=== PATIENT | female | born 2000 | race Two or more races ===

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

== ENCOUNTER 2018-12-01 21:26 | Observation (INO) | payer OTHER ==
[2018-12-01] MEDS ORDERED: Famotidine TAB* 20 MG PO ONE (22:19)
[2018-12-01] MEDS ORDERED: NS 0.9% 1000 ML** 1,000 ML IV ONE (22:19)
[2018-12-01] MEDS ORDERED: Ondansetron INJ* 2 MG/ML VIAL IV ONE (22:19)
[2018-12-01] MEDS ORDERED: Al Hydrox/Mg Hydrox/Simet LIQ* 30 ML UDC PO ONE (22:20)
[2018-12-01] MEDS ORDERED: Lidocaine 2% VISCOUS* 15 ML UDC PO ONE (23:29)
[2018-12-01 23:59] LABS: ABS Lymphocytes 2.3 10^3/ul (1.0-4.8); ABS Monocytes 0.8 10^3/ul (0-0.8); ABS Neutrophils 7.8 10^3/ul (1.5-7.7); Eosinophil % 0.3 %; Hematocrit 35 % (35-47); Hemoglobin 11.6 g/dL (12.0-16.0); Lymphocyte % 20.8 %; Mean Corpuscular HGB Conc 34 g/dL (31-36); Mean Corpuscular Hemoglobin 32 pg (27-31); Mean Corpuscular Volume 95 fL (80-97); Mean Platelet Volume 6.9 fL (7.4-10.4); Nucleated Red Blood Cells % 0.1; Platelet Count 291 10^3/uL (150-450); Red Blood Count 3.66 10^6 /uL (3.70-4.87); Red Cell Distribution Width 12 % (10.5-15); White Blood Count 10.9 10^3/uL (3.5-10.8)
[2018-12-02 00:01] LABS: Urine Appearance Clear; Urine Bilirubin Negative (Negative); Urine Blood Negative (Negative); Urine Color Yellow; Urine Glucose Negative (Negative); Urine Ketones Negative (Negative); Urine Nitrite Negative (Negative); Urine Protein Negative (Negative); Urine Specific Gravity 1.018 (1.010-1.030); Urine Urobilinogen Negative (Negative)
[2018-12-02] MEDS ORDERED: Morphine 10 MG/ML VIAL (1 ml) IV ONE ×2 (00:02→01:32)
[2018-12-02] MEDS ORDERED: Ondansetron INJ* 2 MG/ML VIAL IV ONE (00:02)
[2018-12-02 00:31] LABS: ALT 8 U/L (7-52); AST 13 U/L (13-39); Albumin 4.2 g/dL (3.2-5.2); Albumin/Globulin Ratio 1.4 (1-3); Alkaline Phosphatase 33 U/L (34-104); Anion Gap 5 mmol/L (2-11); BUN/Creatinine Ratio 12.7 (8-20); Blood Urea Nitrogen 10 mg/dL (6-24); C Reactive Protein 5.59 mg/L (<8.01); CO2 Carbon Dioxide 27 mmol/L (22-32); Calcium 9.5 mg/dL (8.6-10.3); Chloride 105 mmol/L (101-111); EGFR African American 112.3 (>60); EGFR Non-African American 92.8 (>60); Globulin 2.9 g/dL (2-4); Glucose 95 mg/dL (70-100); Potassium 3.7 mmol/L (3.5-5.0); Sodium 137 mmol/L (135-145); Total Protein 7.1 g/dL (6.4-8.9)
[2018-12-02 00:50] LABS: HCG Pregnancy < 0.60 mIU/mL
[2018-12-02] MEDS ORDERED: Iohexol 300* (CONTRAST) 10 ML SDV IV ONE (02:17)
--- NOTE | 2018-12-02 02:26 | ED ---
Abdominal Pain/Female - HPI Summary HPI Summary: Patient complains of bilateral lower abdominal pain starting 8 hours ago, accompanied by nausea, vomiting 1, diarrhea 1. Pain worse with movement, constant, worse 10/10. Patient states pain started after she had caffeine and red brought together. Patient states she has had caffeine pills and [place] before without issue, but has never had them together. States history of IBS- like symptoms, but states she has never had pain like this before LMP /. Positive OCP. Denies fever, cough, sore throat, CP, SOB, change in urine, vaginal discharge, vaginal bleeding, vaginal pain. Abdominal surgical history is none. - History of Current Complaint Chief Complaint: EDAbdPain Stated Complaint: REALLY BAD STOMACH PAIN FOR 7 HRS PER PT Time Seen by Provider: 12/01/18 23:19 Hx Obtained From: Patient Onset/Duration: Sudden Onset, Lasting Hours Timing: Constant Severity Initially: Severe Severity Currently: Severe Pain Intensity: 8 Pain Scale Used: 0-10 Numeric Location: Diffuse Radiates: No Character: Sharp Aggravating Factor(s): Movement Alleviating Factor(s): Position Associated Signs and Symptoms: Positive: Nausea, Vomiting, Diarrhea Allergies/Adverse Reactions: Allergies Allergy/AdvReac Type Severity Reaction Status Date / Time No Known Allergies Allergy Verified 12/01/18 21:37 PMH/Surg Hx/FS Hx/Imm Hx Endocrine/Hematology History: Denies: Hx Anticoagulant Therapy Cardiovascular History: Denies: Hx Pacemaker/ICD History: Denies: Hx Dialysis Sensory History: Denies: Hx Eye Prosthesis Opthamlomology History: Denies: Hx Legally Blind EENT History: Denies: Hx Deafness Neurological History: Denies: Hx Dementia Psychiatric History: Denies: Hx Autism Infectious Disease History: No Infectious Disease History: Denies: Traveled Outside the [place] in Last 30 Days - Social History Occupation: Student Alcohol Use: Weekly Substance Use Type: Reports: Marijuana Smoking Status (MU): Former Smoker Review of Systems Constitutional: Negative Eyes: Negative ENT: Negative Cardiovascular: Negative Respiratory: Negative Positive: Abdominal Pain, Vomiting, Diarrhea, Nausea Genitourinary: Negative Musculoskeletal: Negative Skin: Negative Neurological: Negative Psychological: Normal All Other Systems Reviewed And Are Negative: Yes Physical Exam - Summary Physical Exam Summary: Abdomen diffusely tender, worse right lower quadrant. No CVA tenderness bilaterally. Lung sounds clear to auscultation bilaterally. Triage Information Reviewed: Yes Vital Signs On Initial Exam: Initial Vitals Temp Pulse Resp BP Pulse Ox 98.8 F 95 20 118/77 100 12/01/18 21:30 12/01/18 21:30 12/01/18 21:30 12/01/18 21:30 12/01/18 21:30 Vital Signs Reviewed: Yes Appearance: Positive: Well-Appearing Skin: Positive: Warm Head/Face: Positive: Normal Head/Face Inspection Eyes: Positive: Normal Neck: Positive: Supple Respiratory/Lung Sounds: Positive: Clear to Auscultation Cardiovascular: Positive: Normal Abdomen Description: Positive: Other: Musculoskeletal: Positive: Normal Neurological: Positive: Normal Psychiatric: Positive: Normal AVPU Assessment: Alert - Mercedes Coma Scale Best Eye Response: 4 - Spontaneous Best Motor Response: 6 - Obeys Commands Best Verbal Response: 5 - Oriented Coma Scale Total: 15 Diagnostics - Vital Signs Vital Signs Temp Pulse Resp BP Pulse Ox 12/02/18 01:37 18 12/02/18 01:00 111 96 12/02/18 00:56 113 128/80 98 12/02/18 00:26 97 120/81 100 12/02/18 00:23 107 100 12/02/18 00:22 18 12/02/18 00:00 94 99 12/01/18 23:56 98 116/83 100 12/01/18 23:26 95 122/81 98 12/01/18 21:30 98.8 F 95 20 118/77 100 - Laboratory Lab Results: Lab Results 12/01/18 12/01/18 12/01/18 Range/Units 23:50 23:54 23:54 WBC 10.9 H (3.5-10.8) 10^3/uL RBC 3.66 L (3.70-4.87) 10^6 /uL Hgb 11.6 L (12.0-16.0) g/dL Hct 35 (35-47) % MCV 95 (80-97) fL MCH 32 H (27-31) pg MCHC 34 (31-36) g/dL RDW 12 (10.5-15) % Plt Count 291 (150-450) 10^3/uL MPV 6.9 L (7.4-10.4) fL Neut % (Auto) 71.5 % Lymph % (Auto) 20.8 % [place] % (Auto) 6.9 % Eos % (Auto) 0.3 % Baso % (Auto) 0.5 % Absolute Neuts (auto) 7.8 H (1.5-7.7) 10^3/ul Absolute Lymphs (auto) 2.3 (1.0-4.8) 10^3/ul Absolute Monos (auto) 0.8 (0-0.8) 10^3/ul Absolute Eos (auto) 0.0 (0-0.6) 10^3/ul Absolute Basos (auto) 0.0 (0-0.2) 10^3/ul Absolute Nucleated RBC 0.0 10^3/ul Nucleated RBC % 0.1 Sodium 137 (135-145) mmol/L Potassium 3.7 (3.5-5.0) mmol/L Chloride 105 (101-111) mmol/L Carbon Dioxide 27 (22-32) mmol/L Anion Gap 5 (2-11) mmol/L BUN 10 (6-24) mg/dL Creatinine 0.79 (0.51-0.95) mg/dL Est GFR ( Amer) 112.3 (>60) Est GFR (Non-Af Amer) 92.8 (>60) BUN/Creatinine Ratio 12.7 (8-20) Glucose 95 (70-100) mg/dL Calcium 9.5 (8.6-10.3) mg/dL Total Bilirubin 0.30 (0.2-1.0) mg/dL AST 13 (13-39) U/L ALT 8 (7-52) U/L Alkaline Phosphatase 33 L (34-104) U/L C-Reactive Protein 5.59 (<8.01) mg/L Total Protein 7.1 (6.4-8.9) g/dL Albumin 4.2 (3.2-5.2) g/dL Globulin 2.9 (2-4) g/dL Albumin/Globulin Ratio 1.4 (1-3) Lipase 29 (11.0-82.0) U/L Beta HCG, Quant < 0.60 mIU/mL Urine Color Yellow Urine Appearance Clear Urine pH 8.0 (5-9) Ur Specific [place] 1.018 (1.010-1.030) Urine Protein Negative (Negative) Urine Ketones Negative (Negative) Urine Blood Negative (Negative) Urine Nitrate Negative (Negative) Urine Bilirubin Negative (Negative) Urine Urobilinogen Negative (Negative) Ur Leukocyte Esterase Negative (Negative) Urine Glucose Negative (Negative) Result Diagrams: 12/01/18 23:54 12/01/18 23:54 Lab Statement: Any lab studies that have been ordered have been reviewed, and results considered in the medical decision making process. Re-Evaluation - Re-Evaluation First Eval Re-Evaluation Time: 03:15 Change: Unchanged Comment: Pt still has pain. Second Eval Re-Evaluation Time: 04:00 Change: Unchanged Comment: She now states she is not comfortable being discharged. Abdominal Pain Fem Course/Dx - Course Course Of Treatment: Patient complains of bilateral lower abdominal pain starting 8 hours ago, accompanied by nausea, vomiting 1, diarrhea 1. Pain worse with movement, constant, worse 10/10. Patient states pain started after she had caffeine and red brought together. Patient states she has had caffeine pills and [place] before without issue, but has never had them together. States history of IBS-like symptoms, but states she has never had pain like this before LMP . Positive OCP. Denies fever, cough, sore throat, CP , SOB, change in urine, vaginal discharge, vaginal bleeding, vaginal pain. Abdominal surgical history is none. Physical exam: Abdomen diffusely tender, worse right lower quadrant. No CVA tenderness bilaterally. Lung sounds clear to auscultation bilaterally. Vital signs within normal limits. WBC 10.9. Labs otherwise unremarkable. - Diagnoses Provider Diagnoses: Terminal ileitis, Intractable lower abdominal pain Discharge - Sign-Out/Discharge Documenting (check all that apply): Sign-Out Patient Signing out patient TO: Gregory Monahan - Discharge Plan Condition: Fair Disposition: ADMITTED TO [facility] - Billing Disposition and Condition Condition: FAIR Disposition: Admitted to [facility]
--- NOTE | 2018-12-02 03:02 | ED ---
Progress - Progress Note Progress Note: Receiving sign out from HEAVENLY Agrawal, pending CT A/P. Pt's condition has been stable. CT A/P: Nonspecific enteritis of the distal ileum, most likely infectious with inflammatory bowel disease considered much less likely. ED physician reviewed radiology report. She denies any hx of bowel issues, arthralgia, anal/oral lesions, or hematochezia. Pt is admitted with a final dx of terminal ileitus. Re-Evaluation - Re-Evaluation First Eval Re-Evaluation Time: 03:15 Change: Unchanged Comment: Pt still has pain. Second Eval Re-Evaluation Time: 04:00 Change: Unchanged Comment: She now states she is not comfortable being discharged. Course/Dx - Course Course Of Treatment: Patient with evidence of terminal ileitis the radiologist feels is possibly infectious over inflammatory. She was given IV Zosyn and dexamethasone here. There is no family history of Crohn's disease or colitis. She has had no arthritis, dermatitis or oral ulcerations. She has not had belly pain or back pain and recurrent nature. Originally we are hoping to have her discharged however patient's pain is persistent and will require her to be admitted. I discussed with the hospitalist who will admit and consult GI for possible colonoscopy. - Diagnoses Provider Diagnoses: Terminal ileitis, Intractable lower abdominal pain - Provider Notifications Discussed Care Of Patient With: Shadi Stephens Time Discussed With Above Provider: 04:15 Instructed by Provider To: Admit As Inpatient Discharge - Sign-Out/Discharge Documenting (check all that apply): Patient Departure - Admit, Receiving Sign- Out Receiving patient FROM: Praful Parnell Patient Received Moderate/Deep Sedation with Procedure: No - Discharge Plan Condition: Fair Disposition: ADMITTED TO [facility] Prescriptions: Ciprofloxacin TAB* [Cipro 500 MG TAB*] 500 mg PO BID #14 tab HYDROcodone/ACETAMIN 5-325 MG* [[place] 5-325 TAB*] 1 tab PO Q8H PRN #12 tab MDD 3 PRN Reason: Severe Pain Hyoscyamine TAB* [Anaspaz 0.125 MG TAB*] 0.125 mg PO Q6H PRN #40 tab PRN Reason: abdominal cramping metroNIDAZOLE [Flagyl 500 MG TAB] 500 mg PO TID #21 tab Patient Education Materials: Crohn Disease (ED), Enteritis (ED) Forms: *School Release Referrals: [facility] [Provider Group] Saleem Ness DO [Doctor of Osteopathy] - Additional Instructions: It appears you have infectious enteritis at the last portion of your small bowel called the terminal ileum. There is some correlation of findings in this area with possibility of Crohn's disease. A handout has been provided to you on this. You will need it additional workup to evaluate for resolution and possibly need a colonoscopy to rule out Crohn's disease. He should follow-up with a international nurse in your home country or here in this area. Contact for gastroenterologists here has been provided. Return with fever, uncontrolled pain, vomiting, blood in the stools, worse or other concerns. Liquid diet as tolerated. You may experience some diarrhea. - Billing Disposition and Condition Condition: FAIR Disposition: Admitted to [facility] - Attestation Statements Document Initiated by Rudi: Yes Documenting Scribe: Pat Albert Provider For Whom Rudi is Documenting (Include Credential): Gregory Monahan MD Scribe Attestation: Pat Jacobson, scribed for Gregory Monahan MD on 12/02/18 at 0433. Scribe Documentation Reviewed: Yes Provider Attestation: The documentation as recorded by the Pat tai accurately reflects the service I personally performed and the decisions made by , Gregory Monahan MD Status of Scribshola Document: Viewed
[2018-12-02] MEDS ORDERED: Dexamethasone IV* 4 MG/ML 1 ML (4 MG) IV SLOW PU ONE (03:25)
[2018-12-02] MEDS ORDERED: Piperacillin/Tazobac ADVAN(*) 3.375 GM in NS 0.9% 100 ML* 100 ML IVPB ONE (03:25)
[2018-12-02] MEDS ORDERED: Morphine 4 MG/ML VIAL (1 ml) 4 MG/ML VIAL IV ONE (03:53)
[2018-12-02] MEDS ORDERED: Morphine INJ* 2 MG/ML 1 ML SYRINGE (TWO MG - NEW SYRINGE VERSION) IV PRN (05:11)
[2018-12-02] MEDS ORDERED: NS 0.9% 1000 ML** 1,000 ML IV SCH (05:15)
--- NOTE | 2018-12-02 08:28 | HP ---
ADMISSION HISTORY AND PHYSICAL: DATE OF ADMISSION: 12/01/18 PRIMARY CARE PROVIDER: [facility]. HEALTHCARE PROXY: Her mother. CODE STATUS: Full. SOURCE OF INFORMATION: History obtained from interview with the patient. RELIABILITY: Fair. CHIEF COMPLAINT: Abdominal pain. 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 Day prior to presentation, she had gone to bed at 3 a.m., woke up, took a 9 a.m. exam and then took caffeine pill and drank half a can of Red Bull and began studying for her exam the next day, which will be today. The amount of caffeine she took was not an anomaly for her. She does take caffeine pills every other day, sometimes twice a day. She also drinks Red Bull , went out drinking alcohol as a mixer. However, half an hour later after taking the caffeine and the Red Bull, she developed "excruciating cramps," presented to [facility], who recommended trying Pepto-Bismol and noted it would resolve. She followed the recommendations and returned to the library to study, where she noted she was crying all day and after about 8 hours of what was identified as excruciating pain. She presented to [facility] [place]. She notes that she had 1 episode of watery diarrhea. She had felt gassy with inability to pass flatus and she had 1 episode of emesis. She notes it feels like there is a brick in her belly that is stabbing her. She has pain with urination not from dysuria, but the muscles needed to use to urinate as described by the patient. She notes an episode of mucus in her stool previously to this episode and an episode that had also occurred with 8 hours of abdominal pain. The patient is noted to be very thin with a BMI of 17. She notes that she does restrict eating because she feels very full and feels they all contribute to worsening constipation because the food is in her belly, but not based on weight or body image. In the emergency room, she received between 8 and 12 mg of IV morphine, GI cocktail, Zofran, Pepcid, and Decadron with some improvement, was seen by this author. She had 3/10 abdominal pain, still felt like she would have an inability to care for herself secondary to abdominal discomfort at home. A CAT scan was performed in the emergency room with the read overnight notable for mild wall thickening of multiple ileal small bowel loops located in the right upper quadrant. The patient was recommended for admission to the hospitalist service, seen by this author. PAST MEDICAL HISTORY: Includes anemia, thought to be iron deficiency per patient; vitamin D deficiency; previous history of hyperthyroidism; IBS, constipation predominant. MEDICATIONS: 1. MiraLAX p.r.n. 2. Oral contraceptive pill. ALLERGIES: No known allergies. FAMILY HISTORY: Notes her parents are both quite fit. Her mother is a personal injury paralegal. No known autoimmune disease or IBS. SOCIAL HISTORY: Kurt hernandez. Previously lived in [facility] [facility], however, when she moved to attend [employer], her parents moved to [place] [facility] and so she spends breaks in [place] now. No tobacco. Drinks alcohol on Fridays, Saturdays, and Wednesdays, usually 4 alcoholic drinks per night. Also, smokes marijuana, last one a month prior. REVIEW OF SYSTEMS: As per HPI, also include subjective fevers today, otherwise all her systems negative except for as indicated in the body of the H and P. PHYSICAL EXAMINATION GENERAL: A thin-appearing female, sitting up in bed, interactive, in no apparent distress. VITAL SIGNS: In the emergency room, blood pressure 112/78 when seen by this author, heart rate 112, respiratory rate is 16, she is 100% on room air, T-max 98.8. HEENT: Oropharynx is clear. She has dry mucous membranes. Sclerae anicteric. NECK: Non-elevated JVD. No cervical or supraclavicular lymphadenopathy. No thyromegaly. HEART: She has tachycardic heart rate. Regular rhythm. Early 2/6 systolic ejection murmur. LUNGS: Clear to auscultation. ABDOMEN: Has slight distention. Normoactive bowel sounds. Mild tenderness diffusely throughout on her belly. EXTREMITIES: Warm and well perfused without clubbing, cyanosis, or edema. NEUROLOGIC: She is alert and oriented x3. Cranial nerves II through XII are intact. She has no apparent anxiety, agitation, or depression. DIAGNOSTIC STUDIES/LAB DATA: Labs reviewed. White blood cell count is 10.9, hemoglobin 11.6, MCV of 95, platelets 291. Her CRP is noted to be 5.59. Data reviewed. CT abdomen and pelvis, impression: Nonspecific enteritis of the distal ileum most likely infectious with inflammatory bowel disease, considered much less likely. ASSESSMENT AND PLAN: A 18-year-old female with a history of constipation predominant irritable bowel syndrome, anemia, presenting with significant abdominal pain, status post stressful studying events in conjunction with high- dose caffeine, found with nonspecific enteritis on CAT scan. 1. Ileitis. Young female with a previous history of nonspecific GI distress from previous years. There is concern for ulcerative colitis, however, notably her CRP is normal at this time. She did receive a dose of vancomycin in the emergency room. I think a GI consultation at this point is prudent and I have placed it on the computer. Additionally, stool culture has been added. Continue p.r.n. morphine for pain and keep the patient n.p.o. at this time should she benefit from any intervention including colonoscopy or should she benefit from any procedure at this time as directed by GI group. Hopefully, she may improve without further intervention. 2. Anemia, noted to be a problem in the past, may be difficult to obtain records. Last 2 years of records are both in the [facility] and [facility]. Previous to that, her records prior to 2 years, reside at [facility]. Her parents who reside in [place] [facility] may have some of these records, whom she is in constant communication with. 3. Irritable bowel syndrome, constipation predominant, may benefit for more targeted intervention other than MiraLAX as this seems to be limiting her p.o. intake at this time. 4. DVT prophylaxis. Low risk. Ambulate ad noemí. [id number]/[facility] #: [id number] [facility]
[2018-12-02] MEDS ORDERED: Ondansetron INJ* 2 MG/ML VIAL IV PRN (09:33)
--- NOTE | 2018-12-02 10:34 | PN ---
Subjective Date of Service: 12/02/18 Interval History: VS: WNL Labs: slightest leukocytosis, slightly low hemoglobin Pt states that she did not sleep well and has continued abdominal pain. States pain is in LLQ, suprapubic, RLQ. She c/o cramping with intermittent stabbing pains. She had diarrhea yesterday and this morning, states stool is dark green , vomiting yesterday. She has not eaten since yesterday afternoon, due to NPO status, but states that she has decreased appetite and nausea. Pt has h/o IBS, mostly constipation, but has had BM daily x2days. Objective Active Medications: Sodium Chloride (Ns 0.9% 1000 Ml) 1,000 mls @ 75 mls/hr IV PER RATE NOVA Morphine Sulfate (Morphine Inj (Syringe))*) 2 mg IV Q4H PRN Ondansetron HCl (Zofran Inj*) 4 mg IV Q6H PRN Vital Signs: Temp Pulse Resp BP Pulse Ox 98.6 F 87 16 112/69 95 12/02/18 08:31 12/02/18 08:31 12/02/18 08:31 12/02/18 08:31 12/02/18 08:31 Oxygen Devices in Use Now: None Appearance: Pt is a healthy appearing 18yof who laying in bed sleeping, wakes easily. She is in no acute distress. Eyes: No Scleral Icterus, PERRLA Ears/Nose/Mouth/Throat: NL Teeth, Lips, Gums, Clear Oropharnyx, - - Mucous membranes dry Neck: NL Appearance and Movements; NL JVP, Trachea Midline Respiratory: Symmetrical Chest Expansion and Respiratory Effort, Clear to Auscultation Cardiovascular: NL Sounds; No Murmurs; No JVD, RRR, No Edema Abdominal: No Hepatosplenomegaly, - - Slight abd distention; hypoactive BS; abdomen with light and deep TTP at LLQ, suprapubic, RLQ Result Diagrams: 12/01/18 23:54 12/01/18 23:54 Additional Lab and Data: Lab Results 12/01/18 12/01/18 12/01/18 Range/Units 23:50 23:54 23:54 WBC 10.9 H (3.5-10.8) 10^3/uL RBC 3.66 L (3.70-4.87) 10^6 /uL Hgb 11.6 L (12.0-16.0) g/dL Hct 35 (35-47) % MCV 95 (80-97) fL MCH 32 H (27-31) pg MCHC 34 (31-36) g/dL RDW 12 (10.5-15) % Plt Count 291 (150-450) 10^3/uL MPV 6.9 L (7.4-10.4) fL Neut % (Auto) 71.5 % Lymph % (Auto) 20.8 % Wood % (Auto) 6.9 % Eos % (Auto) 0.3 % Baso % (Auto) 0.5 % Absolute Neuts (auto) 7.8 H (1.5-7.7) 10^3/ul Absolute Lymphs (auto) 2.3 (1.0-4.8) 10^3/ul Absolute Monos (auto) 0.8 (0-0.8) 10^3/ul Absolute Eos (auto) 0.0 (0-0.6) 10^3/ul Absolute Basos (auto) 0.0 (0-0.2) 10^3/ul Absolute Nucleated RBC 0.0 10^3/ul Nucleated RBC % 0.1 Sodium 137 (135-145) mmol/L Potassium 3.7 (3.5-5.0) mmol/L Chloride 105 (101-111) mmol/L Carbon Dioxide 27 (22-32) mmol/L Anion Gap 5 (2-11) mmol/L BUN 10 (6-24) mg/dL Creatinine 0.79 (0.51-0.95) mg/dL Est GFR ( Amer) 112.3 (>60) Est GFR (Non-Af Amer) 92.8 (>60) BUN/Creatinine Ratio 12.7 (8-20) Glucose 95 (70-100) mg/dL Calcium 9.5 (8.6-10.3) mg/dL Total Bilirubin 0.30 (0.2-1.0) mg/dL AST 13 (13-39) U/L ALT 8 (7-52) U/L Alkaline Phosphatase 33 L (34-104) U/L C-Reactive Protein 5.59 (<8.01) mg/L Total Protein 7.1 (6.4-8.9) g/dL Albumin 4.2 (3.2-5.2) g/dL Globulin 2.9 (2-4) g/dL Albumin/Globulin Ratio 1.4 (1-3) Lipase 29 (11.0-82.0) U/L Beta HCG, Quant < 0.60 mIU/mL Urine Color Yellow Urine Appearance Clear Urine pH 8.0 (5-9) Ur Specific [place] 1.018 (1.010-1.030) Urine Protein Negative (Negative) Urine Ketones Negative (Negative) Urine Blood Negative (Negative) Urine Nitrate Negative (Negative) Urine Bilirubin Negative (Negative) Urine Urobilinogen Negative (Negative) Ur Leukocyte Esterase Negative (Negative) Urine Glucose Negative (Negative) Assess/Plan/Problems-Billing Assessment: 18 yof with PMHx vitamin D deficiency, IBS with mostly constipation, h/o anemia who presents with abdominal pain, CT scan shows distal ileitis. - Patient Problems (1) Ileitis Comment: -Pt has Zosyn in ER. No fevers, no appreciable leukocytosis, diarrhea x2 in 24h -Pain management, nausea management -GI consult pending (2) Irritable bowel syndrome Comment: -IBS, mostly constipation. Typically managed with Miralax, currently with diarrhea (3) Anemia Comment: -Pt reports h/o anemia, is unsure of specifics -Hgb slightly decreased, Hct WNL, MCV WNL -Will continue to monitor (4) DVT prophylaxis Comment: -Ambulation (5) Full code status Status and Disposition: Observation. GI consult pending.
[2018-12-02 15:28] LABS: Ferritin 65.1 ng/mL (11-307)
[2018-12-02 15:32] VITALS: BP 94/51
[2018-12-02 15:37] LABS: % Iron Saturation 10 % (15-55); Iron 32 ug/dL (50-212); Total Iron Binding Capacity 316 mcg/dL (250-450); Transferrin 226 mg/dL (203-362)
--- NOTE | 2018-12-03 00:17 | DS ---
CC: [facility] * DATE OF ADMISSION: 12/02/18 DATE OF DISCHARGE: 12/02/18 PRIMARY CARE PROVIDER: [facility]. ATTENDING PHYSICIAN: Dr. Chani Leo * (dictated by HEAVENLY Medina). PRIMARY DIAGNOSIS: Ileitis. SECONDARY DIAGNOSES: 1. Anemia, presumed iron deficiency per the patient, although unsure and unable to obtain medical records. 2. Vitamin D deficiency. 3. History of hyperthyroidism. 4. Irritable bowel syndrome, predominantly constipation. STUDIES WHILE IN THE HOSPITAL: Abdomen/pelvis CT, 12/02/18, impression: Nonspecific enteritis of the distal ileum, most likely infectious, with inflammatory bowel disease considered much less likely. DISCHARGE MEDICATIONS: Home medications: None. New Medications: 1. Metronidazole 500 mg p.o. t.i.d. 2. Anaspaz 0.125 mg p.o. q.6 hours p.r.n. abdominal cramping. 3. Hydrocodone/acetaminophen 5/325 one tab p.o. q.8 hours p.r.n. severe pain, MDD 3. 4. Ciprofloxacin 500 mg p.o. b.i.d. HISTORY OF PRESENT ILLNESS/HOSPITAL COURSE: Ms. Childress is a 18-year-old female with a past medical history of IBS with predominantly constipation. 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 She arrived at the ER during the early hours of 12/02/18, stating that the day prior, she had woken up around 9 a.m., taken a caffeine pill, drank half a can of Red Bull, and began studying. She notes that approximately half an hour later, she developed excruciating cramping in the lower abdominal area. She notes also that she had sharp pains intermittently in the lower abdominal area. She notes one episode of loose stool at 4 p.m., one episode of vomiting at 7 p.m., and nausea throughout the episode. She has decreased appetite and continued abdominal pain. In the ER, she received a full workup which included CAT scan, IV morphine, GI cocktail, Zofran, Pepcid, Decadron, Zosyn. She was noted to have mild wall thickening of multiple ileal small bowel loops in the right upper quadrant. She was then admitted to the hospital overnight. Later that morning , a GI consult was requested. The patient's pain and nausea were controlled throughout her stay. Iron studies and other laboratory work for possible celiac was ordered per GI request. The patient was started on ciprofloxacin and Flagyl at discharge due to concern for infectious source. Again, Gastroenterology was consulted. Due to the patient's odd situation, they recommend discharge today with followup colonoscopy outpatient tomorrow. It is noted that the patient has one more final exam to take and then is expected to leave the country on 12/04/18. Therefore, this is a somewhat urgent matter. Again, Dr. Keller was consulted. She recommended antibiotics, which were ordered, colonoscopy, which will occur tomorrow, and blood work, which was obtained prior to discharge. At the time of discharge, the patient continues to have lower abdominal pain. She denies vomiting, although she continues to have nausea. She had one episode of diarrhea today, which she described as dark green and watery. She denies hematochezia, hematemesis, melena. She denies chest pain, shortness of breath, pain in the extremities. Ms. Childress is stable for discharge. PHYSICAL EXAMINATION: Vital signs are temperature 97.4 oral, heart rate 60, respiratory rate 16, oxygen saturation 98% on room air, blood pressure 94/51. General: Ms. Childress is a well-developed, well-nourished, underweight young woman, who is lying in bed sleeping. She wakes easily. She appears to be uncomfortable, but is in no acute distress. She is cooperative and talkative. HEENT: Visual davila are grossly intact. The pupils are equally round and reactive to light. Sclerae are without icterus. Oral mucous membranes are dry. There are no lesions. The pharynx is clear. Cardiovascular: Regular rate and rhythm with S1, S2 present. No murmurs, rubs or gallops. No JVD. Respiratory: Symmetrical chest expansion without use of accessory muscles. Lungs are clear to auscultation. There are no rhonchi, wheezes or rubs. Abdomen: Flat. There is very minimal distention. The abdomen is soft. There is no tenderness in the upper abdomen, diffuse tenderness throughout the lower abdomen. There is no hepatosplenomegaly. Musculoskeletal: Full range of motion with no pain or deformities. Extremities: Skin is warm and smooth bilaterally. There is no edema, clubbing or cyanosis. Radial and pedal pulses are 2+ bilaterally. Neuro: The patient is awake. She is alert and oriented x3. DISCHARGE PLAN: Ms. Childress will be discharged to home. ACTIVITY: As tolerated. DIET: Clear liquids. Instructions for colonoscopy prep to be called to patient this afternoon. MEDICATIONS: 1. Ciprofloxacin x7 days. 2. Metronidazole x7 days. 3. Hydrocodone p.r.n. severe pain. 4. Hyoscyamine p.r.n. abdominal cramping. EDUCATION: 1. Follow up with Dr. Keller for a colonoscopy tomorrow at which time iron studies and celiac studies will be reviewed. 2. Follow up with primary care provider in 4 to 7 days. 3. Return to the ER or nearest hospital if you experience any recurrence or worsening of symptoms, shortness of breath, chest discomfort, dizziness, lightheadedness, loss of consciousness, high fevers, chills, night sweats, increased abdominal pain, nausea, vomiting, diarrhea. Return if there is fever , uncontrolled pain, vomiting, blood in stools or other concerns. This is a summarized report of a complex medical history and hospital stay. For further details, please see the entire medical record. TIME SPENT: Approximately 35 minutes was spent on this discharge; greater than half of that time was spent face to face with the patient discussing discharge plans and instructions. HEAVENLY GASPAR [id number]/[facility] #: [id number] EVELINA
--- NOTE | 2018-12-03 01:24 | CONS ---
GASTROENTEROLOGY CONSULT REPORT: DATE OF CONSULT: 12/02/18 REASON FOR CONSULT: Abdominal pain and abnormal imaging. REQUESTING PROVIDER: HEAVENLY Medina HISTORY OF PRESENT ILLNESS: Ms. Childress is a 18-year-old woman without significant past medical history, who presents to the ER with acute abdominal pain. 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 She was studying on the day prior to presentation and drinking a fair amount of caffeine. She then developed severe abdominal pain. This pain started around 1 o'clock p.m. and continued until 4 a.m. Pain is largely in the right lower quadrant. She had one episode of diarrhea in the afternoon and one episode of vomiting. Both of these episodes were nonbloody. She had some chills overnight, but no documented fever. She was seen briefly at [facility] and was given Pepto- Bismol with perhaps mild improvements. She ultimately presented to the ER for evaluation. In the ER, she was noted to have a mild white count of 10.9 and hemoglobin of 11.6. Her CRP was nonelevated. Lipase was normal. Abdominal and pelvis CT was performed, which demonstrated nonspecific enteritis of the distal ileum. Radiology favors this to be infectious with inflammatory bowel disease being less likely. Admitted for observation. On interview, Ms. Childress states that she is feeling quite a bit better. She has not eaten in over 24 hours, although she does not have much of an appetite. No longer having any nausea. No additional episodes of vomiting. No recent bowel movements since admission. Pain has largely resolved. On history, Ms. Childress and her mother state that there has been a self diagnosis of IBS. She has had a few episodes of more significant abdominal discomfort. Last summer while in [facility], [place], she developed significant constipation and bloating. She was seen and given some medications to help her manage her constipation with good effect. In July, she had 8 hours of severe abdominal cramping and nausea. This seemed to proceed a period of constipation with no bowel movement for nearly 11 days. Associated with the abdominal cramping was a very painful hard stool with some blood. Since this time, she has had more regular bowel movements occurring every 2 to 3 days. She does not feel that her stools are very hard and that there is much straining. No blood in her stools since the episode in July. She reports feeling fairly rundown recently, which she thinks may be related to her . Her mother feels that she has lost some weight, although the patient is not able to really quantify this weight loss. Her mother also feels that she was more frail and less healthy than she did several months ago when she started school. The patient denies. Any canker sores or joint pains. She had a skin rash in the spring that seemed to be urticarial in nature. No direct family members with Crohn's disease or ulcerative colitis. REVIEW OF SYSTEMS: Complete review of systems is negative except as above. PAST MEDICAL HISTORY: 1. History of anemia, thought to be iron deficiency, chronic. 2. Vitamin D deficiency. 3. History of thyroid dysfunction, not on therapy. 4. IBS, constipation predominant, self diagnosed?. MEDICATIONS: Oral contraceptive pill. ALLERGIES: No known drug allergies. FAMILY HISTORY: No GI or liver disease. The patient's father has a first cousin with inflammatory bowel disease. SOCIAL HISTORY: A [employer] sophomore. Previously lived in [facility], [place]. Her parents now live in [facility]. No tobacco use. Drinks alcohol several times per week. Smokes marijuana occasionally. PHYSICAL EXAM: Vital Signs: Unremarkable. Afebrile. Heart rate 87, blood pressure 112/69, 95% on room air. General: Tired-appearing young woman. Mother at bedside. Several sons at bedside. HEENT: Mucous membranes are moist. Cardiovascular: Regular rate and rhythm. Lungs: Breathing comfortably. Abdomen: No significant distention. Mild tenderness diffusely, although more so in the lower abdomen. No guarding. No rebound tenderness. Positive bowel sounds. Extremities: No edema. Skin: No rashes or jaundice. Neuro: A and O x3. No gross neuro deficits. DIAGNOSTIC STUDIES/LAB DATA: Labs reviewed, mild leukocytosis at 10.9. Mild hemoglobin of 11.6, although no prior baseline for comparison. Percent saturation is 10. Iron is 32. Ferritin normal at 65. CRP normal at 5.59. LFT panel normal except for alkaline phosphatase, which is borderline low at 33 (lower limit of normal is 34). Lipase is normal. Imaging: CT abdomen and pelvis performed at midnight on the 12/02/18 demonstrated mid wall thickening of multiple ileal small bowel loops located in the right lower quadrant. Subtle mesenteric edema noted. No extreme bowel dilation. Mild wall thickening of the transverse to the descending also suggested versus underdistention. IMPRESSION AND PLAN: Ms. Childress is a 18-year-old woman with a history of intermittent constipation, who is admitted with acute abdominal pain and nonspecific ileal bowel wall thickening on CT. Ms. Childress began having significant lower abdominal pain associated with episode of diarrhea and vomiting the day prior to admission. She is in the middle of studying for exam, which is quite stressful. Not had a similar type of discomfort before, although she has had other episodes of abdominal pain over the last year. These episodes are rare and usually are related to constipation. Discussed with the patient and her mother that her symptoms basically be a presentation of the infectious gastroenteritis, which would expect to be self- limited. However, given the the patient's abnormal imaging, mild anemia, potential weight loss, and change in health over the last few months, as well as several episodes of abdominal pain over the past 6 months, I think it is reasonable to consider a more chronic inflammatory bowel disease versus such as Crohn's disease. Reassuringly, the patient's CRP is normal and symptoms are already improving without intervention. I think it is very appropriate to perform a colonoscopy to assess the colon as well as the distal terminal ileum to evaluate for the presence of any inflammation. Biopsies to be obtained in that case to help determine if there is acute or chronic inflammatory cells present. The patient is feeling better and would like to be discharged with an outpatient colonoscopy. She is leaving the country to go to [facility] on Friday, so I offered her a colonoscopy tomorrow, , in the outpatient setting. The patient and her mother are quite appreciative of this plan. I will recommend the patient be kept on clears for today and we will start colonoscopy prep this evening with anticipation of colonoscopy tomorrow. I have asked that the primary team send a celiac panel prior to the patient's discharge. Thank you very much for this consult. [id number]/[facility] #: [id number] EVELINA
[2018-12-03 10:28] LABS: Folate 12.05 ng/mL (>3.99)
[2018-12-03 10:32] LABS: Vitamin D Total 25(OH) 25.5 ng/mL (20-50)
[2018-12-03 12:14] LABS: Immunoglobulin A 287 mg/dL (61 - 356)
[2018-12-03 17:43] LABS: Tissue Transglutaminase IgA Ab <1.2 U/mL
== END 2018-12-02 16:40 | disposition home or self-care (01) ==
LOC: ED 21:26 → MEDTELE 12-02 05:11
PROVIDERS: ADMIT Internal Medicine; ATTEND Internal Medicine
DX: K52.9 Noninfective gastroenteritis and colitis, unspecified (principal); D64.9 Anemia, unspecified; E55.9 Vitamin D deficiency, unspecified; E05.90 Thyrotoxicosis, unspecified without thyrotoxic crisis or storm; K58.1 Irritable bowel syndrome with constipation; R11.2 Nausea with vomiting, unspecified; R19.7 Diarrhea, unspecified; Z87.891 Personal history of nicotine dependence; R10.9 Unspecified abdominal pain
CPT/HCPCS: 36415; 74177; 80053; 81003; 82306; 82607; 82728; 82746; 82784; 83516; 83540; 83550; 83690; 84702; 85025; 86140; 96365; 96375; 96376; 99284; A9270-GY; G0378; J1100; J2270; J2405; J2543; Q9967

== ENCOUNTER 2019-04-15 11:43 | Emergency (ER) | payer OTHER ==
--- NOTE | 2019-04-15 12:01 | ED ---
Abdominal Pain/Female - HPI Summary HPI Summary: 18 year old F presenting to [facility] complains of lower abdominal pain rated 6/10 in severity currently since several days ago, worse since 30 minutes ago. Patient states that 30 minutes ago, she had severe lower abdominal, bladder, and rectal pain rated 9/10 which has since improved slightly. Patient reports constipation. Patient reports fever last night. Patient denies nausea and vomiting. Last normal bowel movement was 1 day ago or 2 days ago. Patient states she is sexually active. She denies vaginal discharge/bleeding. Patient cannot remember when her LNMP was. Symptoms aggravated by nothing. Symptoms alleviated by nothing. Patient states she hasn't taken any medications prior to arrival. PMHx: "colon infection" in 2018. Surgical hx: colonoscopy which was normal. Patient states her symptoms are similar to last year's "colon infection. " Patient states she had a yeast infection for which she was taking Monistat. She denies any other pertinent PMHx. Drinks alcohol socially, denies smoking and drugs. - History of Current Complaint Chief Complaint: Cruz Stated Complaint: SEVERE STOMACH PAIN PER PT Time Seen by Provider: 04/15/19 11:50 Hx Obtained From: Patient Onset/Duration: Lasting Days, Still Present, Worse Since - 30 minutes ago Timing: Constant Severity Initially: Severe - 9/10 Severity Currently: Moderate Pain Intensity: 6 Pain Scale Used: 0-10 Numeric Aggravating Factor(s): Nothing Alleviating Factor(s): Nothing Associated Signs and Symptoms: Positive: Fever, Constipation. Negative: Vaginal Bleeding, Vaginal Discharge, Nausea, Vomiting Allergies/Adverse Reactions: Allergies Allergy/AdvReac Type Severity Reaction Status Date / Time No Known Allergies Allergy Verified 12/03/18 14:54 PMH/Surg Hx/FS Hx/Imm Hx Endocrine/Hematology History: Reports: Hx Anemia, Other Endocrine/Hematological Disorders - vitamin D deficiency, hyperthyroidsim Cardiovascular History: Denies: Hx Pacemaker/ICD GI History: Reports: Hx Irritable Bowel, Other GI Disorders - constipation Sensory History: Reports: Hx Contacts or Glasses - not with patient Opthamlomology History: Reports: Hx Contacts or Glasses - not with patient Neurological History: Denies: Hx Headaches, Hx Migraine - Surgical History Surgery Procedure, Year, and Place: colonoscopy Infectious Disease History: No Infectious Disease History: Denies: Traveled Outside the [place] in Last 30 Days - Family History Known Family History: Positive: Other - NEG: IBS - Social History Alcohol Use: Weekly Hx Substance Use: Yes Substance Use Type: Reports: Marijuana Hx Tobacco Use: Yes Smoking Status (MU): Former Smoker Review of Systems Positive: Fever Positive: Abdominal Pain, Other - constipation. Negative: Vomiting, Nausea Genitourinary: Negative - vaginal bleeding Negative: discharge All Other Systems Reviewed And Are Negative: Yes Physical Exam - Summary Physical Exam Summary: VITAL SIGNS: Reviewed. GENERAL: Patient is a well-developed and nourished female who is lying comfortable in the stretcher. Patient is not in any acute respiratory distress. HEAD AND FACE: Normocephalic and atraumatic. EYES: PERRLA, EOMI x 2, No injected conjunctiva. EARS: Hearing grossly intact. Ear canals and tympanic membranes are WNL. MOUTH: Oropharynx within normal limits. NECK: Supple, trachea is midline, no adenopathy, no JVD. CHEST: Symmetric, no tenderness at palpation. LUNGS: Clear to auscultation bilaterally. No wheezing or crackles. CVS: RRR, S1 and S2 present, no murmurs or gallops appreciated. ABDOMEN: Lower abdominal tenderness, right more than left. Guarding, no rebound EXTREMITIES: FROM in all major joints, no edema, no cyanosis or clubbing. NEURO: Alert and oriented x 3. No acute neurological deficits. Speech is normal. SKIN: Dry and warm. Triage Information Reviewed: Yes Vital Signs On Initial Exam: Initial Vitals Temp Pulse Resp BP Pulse Ox 98.3 F 82 18 100/67 99 04/15/19 11:45 04/15/19 11:45 04/15/19 11:45 04/15/19 11:45 04/15/19 11:45 Vital Signs Reviewed: Yes Diagnostics - Vital Signs Vital Signs Temp Pulse Resp BP Pulse Ox 04/15/19 11:45 98.3 F 82 18 100/67 99 - Laboratory Result Diagrams: 04/15/19 12:23 04/15/19 12:24 Lab Statement: Any lab studies that have been ordered have been reviewed, and results considered in the medical decision making process. - CT Abdomen/Pelvis CT Interpretation Completed By: Radiologist Summary of CT Findings: #. Indeterminant 3.2 cm maximum dimension LEFT complex ovarian/adnexal region lesion for which further assessment with ultrasound is suggested. While nonspecific based on the CT appearance the differential includes tubo-ovarian abscess given the clinical context. #. Physiologic small volume of free pelvic fluid. #. Normal appendix documented. No pathologic process of the alimentary tract evident. ED physician has reviewed this report. - Ultrasound Transvaginal Ultrasound Interpretation Completed By: Radiologist Summary of Ultrasound Findings: No definite evidence of tubo-ovarian abscess. No adnexal masses. ED physician has reviewed this report. Abdominal Pain Fem Course/Dx - Course Course Of Treatment: Patient is a 18-year-old female who presents to the emergency room with a chief complaint of having lower abdominal pain more in the right of the lower abdomen than the left. She denies any nausea or vomiting , she reports fevers last night. Abdomen and pelvic CT impression: #. Indeterminate 3.2 cm maximum dimension LEFT complex ovarian/adnexal region lesion for. which further assessment with ultrasound is suggested. While nonspecific based on the CT appearance the differential includes tubo-ovarian abscess given the clinical context. #. Physiologic small volume of free pelvic fluid. #. Normal appendix documented. No pathologic process of the alimentary tract evident. Transvaginal U/S IMPRESSION: No definite evidence of tubo- ovarian abscess. No adnexal masses. Patient was given morphine and Toradol for the pain. After these medications, the patients symptoms have significantly improved. I offered the patient a pelvic exam which she declined at this time. At this time, the patient will be discharged home with follow-up with primary care physician. I discussed all the findings and test results with the patient. Patient was instructed to return to the emergency room immediately if any of the symptoms return or worsen. He was explained the possibility of an early abdominal pathology which was not detected at this time despite the physical exam and testing. He understands and agrees. Abdominal exam before discharge: Soft, NT. No signs of distention. BS present. No rebound no guarding , and no masses palpated. Patient is alert and oriented and hemodynamically stable. Patient is to follow up with primary care physician in the next 2 to 3 days. Patient agrees and understands. - Diagnoses Differential Diagnosis: Positive: Appendicitis, Bowel Obstruction, Constipation , Diverticulitis, Irritable Bowel Syndrome, Ovarian Cyst, Renal Colic, Urinary Tract Infection Provider Diagnoses: Lower abdominal pain Discharge ED - Sign-Out/Discharge Documenting (check all that apply): Patient Departure - Discharge Patient Received Moderate/Deep Sedation with Procedure: No - Discharge Plan Condition: Stable Disposition: HOME Prescriptions: Naproxen [Naproxen 500 mg tab] 500 mg PO BID PRN #20 tablet PRN Reason: Pain - Moderate Patient Education Materials: Abdominal Pain (ED) Referrals: [facility] [Provider Group] - 3 Days Additional Instructions: Follow up with [facility] in 3 days. RETURN TO EMERGENCY DEPARTMENT FOR NEW OR WORSENING SYMPTOMS. - Billing Disposition and Condition Condition: STABLE Disposition: Home - Attestation Statements Document Initiated by Scribe: Yes Documenting Scribe: Aster Hickman Provider For Whom Rudi is Documenting (Include Credential): Regan Live MD Scribe Attestation: IAster, scribed for Regan Live MD on 04/15/19 at 1900. Scribe Documentation Reviewed: Yes Provider Attestation: The documentation as recorded by the vinitaibAster jolley accurately reflects the service I personally performed and the decisions made by me, Regan Live MD Status of Scribe Document: Viewed
[2019-04-15] MEDS ORDERED: NS 0.9% 1000 ML** 1,000 ML IV ONE (12:06)
[2019-04-15] MEDS ORDERED: Morphine 4 MG/ML VIAL (1 ml) 4 MG/ML VIAL IV ONE (12:06)
[2019-04-15 12:32] LABS: ABS Lymphocytes 1.2 10^3/ul (1.0-4.8); ABS Monocytes 0.5 10^3/ul (0-0.8); ABS Neutrophils 6.9 10^3/ul (1.5-7.7); Eosinophil % 0.2 %; Hematocrit 37 % (35-47); Hemoglobin 12.3 g/dL (12.0-16.0); Lymphocyte % 14.4 %; Mean Corpuscular HGB Conc 33 g/dL (31-36); Mean Corpuscular Hemoglobin 33 pg (27-31); Mean Corpuscular Volume 100 fL (80-97); Mean Platelet Volume 7.1 fL (7.4-10.4); Platelet Count 203 10^3/uL (150-450); Red Blood Count 3.74 10^6 /uL (3.70-4.87); Red Cell Distribution Width 15 % (10-15); White Blood Count 8.7 10^3/uL (3.5-10.8)
[2019-04-15 12:50] LABS: ALT 10 U/L (7-52); AST 14 U/L (13-39); Albumin/Globulin Ratio 1.5 (1-3); Alkaline Phosphatase 38 U/L (34-104); Anion Gap 5 mmol/L (2-11); BUN/Creatinine Ratio 13.6 (8-20); Blood Urea Nitrogen 9 mg/dL (6-24); C Reactive Protein 48.32 mg/L (<8.01); CO2 Carbon Dioxide 26 mmol/L (22-32); Calcium 8.9 mg/dL (8.6-10.3); Chloride 106 mmol/L (101-111); EGFR African American 138.2 (>60); EGFR Non-African American 114.2 (>60); Globulin 2.7 g/dL (2-4); Glucose 89 mg/dL (70-100); Potassium 3.6 mmol/L (3.5-5.0); Sodium 137 mmol/L (135-145); Total Protein 6.7 g/dL (6.4-8.9)
[2019-04-15 12:52] LABS: HCG Pregnancy < 0.60 mIU/mL
[2019-04-15 14:10] LABS: Urine Appearance Cloudy; Urine Bacteria 3+ (Absent); Urine Bilirubin Negative (Negative); Urine Blood 1+ (Negative); Urine Color Straw; Urine Glucose Negative (Negative); Urine Ketones Negative (Negative); Urine Nitrite Negative (Negative); Urine Protein Negative (Negative); Urine Red Blood Cell 2+(6-10/hpf) (Absent); Urine Specific Gravity 1.003 (1.010-1.030); Urine Squamous Epithelial Cell Present (Absent); Urine Urobilinogen Negative (Negative); Urine White Blood Cell Trace(0-5/hpf) (Absent)
[2019-04-15] MEDS ORDERED: Morphine INJ* 2 MG/ML 1 ML SYRINGE (TWO MG - NEW SYRINGE VERSION) ONE (14:11)
[2019-04-15] MEDS ORDERED: Morphine INJ* 2 MG/ML 1 ML SYRINGE (TWO MG - NEW SYRINGE VERSION) IV ONE (14:12)
[2019-04-15] MEDS ORDERED: Iohexol 300* (CONTRAST) 10 ML SDV IV ONE (14:22)
[2019-04-15 16:41] VITALS: BP 111/88
== END 2019-04-15 16:40 | disposition home or self-care (01) ==
LOC: ED 11:43
DX: R10.30 Lower abdominal pain, unspecified (principal); D64.9 Anemia, unspecified; E05.90 Thyrotoxicosis, unspecified without thyrotoxic crisis or storm; Z87.891 Personal history of nicotine dependence
CPT/HCPCS: 36415; 74177; 76830; 80053; 81003; 81015; 83605; 83690; 84702; 85025; 86140; 87086; 96361; 96374; 96376; 99283; J2270; Q9967